=== PATIENT | female | born 1965 | race Caucasian/White ===

== ENCOUNTER 2016-12-23 00:31 | Inpatient (IN) ==
[2016-12-23] MEDS ORDERED: ROMAZICON ONE (00:41)
[2016-12-23] MEDS ORDERED: NARCAN ONE (00:41)
[2016-12-23] MEDS ORDERED: NS 1,000 ML ONE (00:42)
[2016-12-23] MEDS ORDERED: NS 1,000 ML IV ONE (01:08)
[2016-12-23] MEDS ORDERED: ROMAZICON IV ONE (01:08)
[2016-12-23 01:29] LABS: MANUAL DIFF NEEDED? NO
[2016-12-23 01:32] LABS: ALLEN TEST YES; BE -1.7 mmoll (-3.0-3.0); BLOOD TYPE ARTERIAL; DRAW SITE R RADIAL; O2(CT) 14.3 mL/dL (15.0-23.0); PO2(98.6) 97 mmHg (60-100); SAMPLE BLOOD; SAO2 93.5 % (95.0-100.0); THB 10.8 g/dL (11.5-17.4); pH(98.6) 7.22 (7.35-7.45)
[2016-12-23 01:33] LABS: MODALITY CANNULA
[2016-12-23 01:34] LABS: BASO% 0.5 % (0.0-0.8); EOS% 3.5 % (0.0-10.0); HEMATOCRIT 34.1 % (37.0-47.0); HEMOGLOBIN 10.8 g/dL (12.0-16.0); LYMPH# 2.33 X1000 (1.2-3.4); LYMPH% 41.2 % (20.5-51.1); MCH 28.9 PG (27-31); MCHC 31.7 g/dL (33-37); MCV 91.2 FL (81-99); MONO# 0.49 X1000 (0.11-0.59); MONO% 8.7 % (1.7-9.3); NEUT% 46.1 % (42.2-75.2); PLT 289 X1000 (130-400); RBC 3.74 XMIL (4.2-5.4)
[2016-12-23 01:34] LABS: PCO2(98.6) 66 mmHg (35-45)
[2016-12-23 01:43] LABS: ACETAMINOPHEN < 1.2 ug/mL (10-30); AGAP 7; ALBUMIN 3.6 g/dL (3.5-5.0); ALKALINE PHOSPHATASE 67 U/L (32-104); BUN 38 mg/dL (8-22); CALCIUM 8.8 mg/dL (8.8-10.2); CHLORIDE 104 mmol/L (98-107); COSMO 284; GOT 16 U/L (10-30); GPT 11 U/L (10-36); POTASSIUM 4.8 mmol/L (3.5-5.1); SODIUM 138 mmol/L (136-145); TCO2 27 mmol/L (25-35); TOTAL PROTEIN 6.6 g/dL (6.3-8.3); UR AMPHETAMINES QUAL PRESUMPTIVE POSITIVE (NONE DETECT); UR BARBITUATES QUAL NONE DETECTED (NONE DETECT); UR BENZODIAZEPIN QUAL PRESUMPTIVE POSITIVE (NONE DETECT); UR CANNABINOIDS QUAL NONE DETECTED (NONE DETECT); UR COCAINE QUAL NONE DETECTED (NONE DETECT); UR METHADONE QUAL NONE DETECTED (NONE DETECT); UR OPIATES QUAL PRESUMPTIVE POSITIVE (NONE DETECT); UR OXYCODONE QUAL NONE DETECTED (NONE DETECT); UR PCP QUAL NONE DETECTED (NONE DETECT)
[2016-12-23] MEDS ORDERED: NARCAN IV ONE (02:19)
[2016-12-23] MEDS ORDERED: ZOFRAN IV PRN (04:16)
[2016-12-23 04:24] LABS: URINE CULTURE NEEDED? NO; URINE MICRO REVIEW NEEDED? NO; URINE SOURCE CATH
[2016-12-23 04:34] LABS: BILIRUBIN URINE NEGATIVE (NEGATIVE); BLOOD URINE NEGATIVE (NEGATIVE); COLOR YELLOW; GLUCOSE URINE NEGATIVE (NEGATIVE); LEUKOCYTES URINE NEGATIVE (NEGATIVE); NITRITE URINE NEGATIVE (NEGATIVE); PROTEIN URINE NEGATIVE (NEGATIVE); SP GRAVITY URINE 1.015; TURBIDITY URINE CLEAR (CLEAR); UROBILINOGEN URINE NORMAL (NORMAL)
[2016-12-23 04:35] LABS: UR EPITHELIAL CELLS <10 /HPF (<10); URINE BACTERIA NEGATIVE /HPF; URINE RBC <10 /HPF (<10); URINE WBC <10 /HPF (<10)
[2016-12-23 05:17] LABS: INR 0.98; PROTIME 10.3 Seconds (9.2-11.7); PTT 22.8 Seconds (22.0-36.0)
--- NOTE | 2016-12-23 05:22 | EKG Report ---
Test Performed on : 12/23/2016 00:35:12 AM Test Reason : od Blood Pressure : / mmHG Vent. Rate : 064 BPM Atrial Rate : 064 BPM P-R Int : 160 ms QRS Dur : 086 ms QT Int : 390 ms P-R-T Axes : 036 046 044 degrees QTc Int : 402 ms Normal sinus rhythm. Increased R/S ratio in V1, consider early transition or posterior infarct Abnormal ECG No previous ECGs available Unconfirmed Result
[2016-12-23] MEDS ORDERED: NS 500 ML IV ONE (06:02)
[2016-12-23] MEDS: NS 1,000 ML IV SCH ×2 (06:23→14:42)
--- NOTE | 2016-12-23 07:20 | Diag Imaging Result Doc PS360 ---
CHEST-PORTABLE - 12/23/2016 INDICATION: Overdose, AMS TECHNIQUE: COMPARISON: None FINDINGS: Lung volumes are low. There are large infiltrates at the left apex and lower lobe. There is smaller infiltrate at the right lower lobe. There is cardiomegaly and pulmonary vascular congestion. IMPRESSION: See findings. Electronically signed by Mack Larose 12/23/2016 7:18 AM
[2016-12-23 08:18] LABS: POTASSIUM 5.4 mmol/L (3.5-5.1)
[2016-12-23 08:40] LABS: ALLEN TEST YES; BE -0.9 mmoll (-3.0-3.0); BLOOD TYPE ARTERIAL; DRAW SITE R BRACHIAL; O2(CT) 14.2 mL/dL (15.0-23.0); PO2(98.6) 110 mmHg (60-100); SAMPLE BLOOD; THB 10.2 g/dL (11.5-17.4); pH(98.6) 7.27 (7.35-7.45)
[2016-12-23 08:40] LABS: ACETAMINOPHEN < 1.2 ug/mL (10-30)
[2016-12-23 08:41] LABS: MODALITY BI PAP
[2016-12-23 08:42] LABS: PCO2(98.6) 58 mmHg (35-45)
[2016-12-23] MEDS: D5 NS 1,000 ML IV SCH (16:55)
[2016-12-24] MEDS: D5 NS 1,000 ML IV SCH ×3 (00:50→18:06)
[2016-12-24 04:58] LABS: ALLEN TEST YES; BE -0.9 mmoll (-3.0-3.0); BLOOD TYPE ARTERIAL; DRAW SITE R RADIAL; O2(CT) 21.1 mL/dL (15.0-23.0); PO2(98.6) 109 mmHg (60-100); SAMPLE BLOOD; SAO2 93.9 % (95.0-100.0); THB 15.9 g/dL (11.5-17.4); pH(98.6) 7.28 (7.35-7.45)
[2016-12-24 04:59] LABS: MODALITY BI PAP; PCO2(98.6) 58 mmHg (35-45)
[2016-12-24 05:05] LABS: HEMATOCRIT 31.6 % (37.0-47.0); MCH 29.5 PG (27-31); MCHC 31.6 g/dL (33-37); MCV 93.2 FL (81-99); MPV 9.8 FL (7.4-10.4); RBC 3.39 XMIL (4.2-5.4)
[2016-12-24 05:20] LABS: AGAP 8; ALBUMIN 3.3 g/dL (3.5-5.0); ALKALINE PHOSPHATASE 56 U/L (32-104); BUN 16 mg/dL (8-22); CALCIUM 8.8 mg/dL (8.8-10.2); CHLORIDE 111 mmol/L (98-107); COSMO 291; GOT 11 U/L (10-30); GPT 9 U/L (10-36); POTASSIUM 4.4 mmol/L (3.5-5.1); SODIUM 145 mmol/L (136-145); TCO2 26 mmol/L (25-35); TOTAL BILIRUBIN 0.27 mg/dL (0.20-1.00); TOTAL PROTEIN 5.9 g/dL (6.3-8.3)
[2016-12-25] MEDS: D5 NS 1,000 ML IV SCH ×3 (02:38→18:12)
[2016-12-26] MEDS ORDERED: MOTRIN PO ONE (01:23)
[2016-12-26] MEDS: D5 NS 1,000 ML IV SCH ×3 (02:07→20:20)
[2016-12-26] MEDS ORDERED: MOTRIN PO PRN (10:22)
[2016-12-26] MEDS: MOTRIN PO PRN ×2 (11:00→20:35)
[2016-12-27] MEDS: MOTRIN PO PRN ×2 (00:30→06:20)
[2016-12-27] MEDS: D5 NS 1,000 ML IV SCH (07:53)
[2016-12-27 07:56] VITALS: BP 154/81
== END 2016-12-27 12:21 | disposition home or self-care (01) ==
LOC: ED 00:31 → EDIPHOLD 04:53 → SUATTDRO 04:53 → ICU 13:22 → 3N 12-26 14:06
PROVIDERS: ATTEND Emergency Medicine

== ENCOUNTER 2018-03-22 11:16 | Inpatient (IN) ==
[2018-03-22] MEDS ORDERED: NS 1,000 ML IV ONE ×2 (11:32→12:07)
[2018-03-22] MEDS ORDERED: ZOSYN 4.5 GM in NS 100 ML IV ONE (11:32)
[2018-03-22] MEDS ORDERED: VANCOMYCIN 1 GM/NS 1 GM/250 ML IVPB IV ONE (11:32)
[2018-03-22] MEDS: LEVOPHED 8 MG in D5 1/2 NS 250 ML IV SCH ×3 (11:35→22:28)
[2018-03-22] MEDS ORDERED: LR 1,000 ML IV ONE (11:51)
[2018-03-22] MEDS ORDERED: NS 1,000 ML ONE ×2 (12:04→21:52)
[2018-03-22 12:15] LABS: ALLEN TEST YES; BE -13.8 mmoll (-3.0-3.0); BLOOD TYPE ARTERIAL; O2(CT) 14.8 mL/dL (15.0-23.0); PCO2(98.6) 35 mmHg (35-45); PO2(98.6) 62 mmHg (60-100); SAMPLE BLOOD; SAO2 89.7 % (95.0-100.0); THB 11.9 g/dL (11.5-17.4)
[2018-03-22 12:20] LABS: pH(98.6) 7.19 (7.35-7.45)
[2018-03-22 12:21] LABS: MODALITY NRB; O2HB 88.3 % (95.0-99.0)
--- NOTE | 2018-03-22 14:11 | Diag Imaging Result Doc PS360 ---
EXAM: CHEST-1 VIEW HISTORY: sepsis TECHNIQUE: Chest single view COMPARISON: 09/20/2017 FINDINGS: Poor inspiratory effort. No cardiomegaly. There is a small left pleural effusion. There are increased perihilar markings. IMPRESSION: Bilateral perihilar infiltrates as well as atelectasis in the left base. Short-term follow-up or CT is suggested following treatment to ensure these areas clear. Electronically signed by Segundo Woody 03/22/2018 2:08 PM
--- NOTE | 2018-03-22 14:46 | Diag Imaging Result Doc PS360 ---
HIP 1 VIEW LEFT - 03/22/2018 INDICATION: confirm central line (Left femoral) TECHNIQUE: COMPARISON: None FINDINGS: There is a left femoral central line in good position with the catheter tip at the level of the acetabular roof. IMPRESSION: Left femoral central line in good position. Electronically signed by Mack Larose 03/22/2018 2:44 PM
[2018-03-22] MEDS ORDERED: QUELICIN IV ONE (14:48)
[2018-03-22] MEDS ORDERED: AMIDATE IV ONE (14:48)
[2018-03-22 14:55] LABS: BASO# 0.01 X1000 (0.0-0.2); BASO% 0.1 % (0.0-0.8); EOS# 0.01 X1000 (0.0-0.7); EOS% 0.1 % (0.0-10.0); HEMATOCRIT 36.6 % (37.0-47.0); HEMOGLOBIN 12.5 g/dL (12.0-16.0); IMM GRAN# 0.04 X1000 (0.0-0.04); IMM GRAN% 0.4 % (0.0-0.5); LYMPH% 15.4 % (20.5-51.1); MCH 30.7 PG (27-31); MCHC 34.2 g/dL (33-37); MCV 89.9 FL (81-99); MONO# 0.56 X1000 (0.11-0.59); MONO% 5.7 % (1.7-9.3); MPV 9.5 FL (7.4-10.4); NEUT# 7.65 X1000 (1.4-6.5); NEUT% 78.3 % (42.2-75.2); PLT 105 X1000 (130-400); RBC 4.07 XMIL (4.2-5.4); RDW 19.6 % (11.5-14.5); WBC 9.77 X1000 (4.8-10.8)
[2018-03-22 14:56] LABS: BILIRUBIN URINE NEGATIVE (NEGATIVE); BLOOD URINE SMALL (NEGATIVE); COLOR YELLOW; GLUCOSE URINE NEGATIVE (NEGATIVE); KETONE URINE NEGATIVE (NEGATIVE); LEUKOCYTES URINE MODERATE (NEGATIVE); NITRITE URINE NEGATIVE (NEGATIVE); PH URINE 5.5; PROTEIN URINE 30 mg/dL (NEGATIVE); SP GRAVITY URINE 1.015; TURBIDITY URINE HAZY (CLEAR); URINE SOURCE CATH; UROBILINOGEN URINE NORMAL (NORMAL)
[2018-03-22 15:03] LABS: UR EPITHELIAL CELLS >10 /HPF (<10); URINE BACTERIA 4+ /HPF; URINE RBC <10 /HPF (<10); URINE WBC <10 /HPF (<10)
[2018-03-22 15:03] LABS: INR 1.61; PROTIME 20.4 Seconds (11.0-16.0)
[2018-03-22 15:11] LABS: URINE CASTS NONE SEEN; URINE SMALL ROUND CELLS NONE SEEN
[2018-03-22 15:21] LABS: ALB/GLOB RATIO 0.7; CALCIUM 7.6 mg/dL (8.8-10.2); CREATININE 2.9 mg/dL (0.5-0.9); POTASSIUM 5.4 mmol/L (3.5-5.1); TOTAL BILIRUBIN 1.54 mg/dL (0.20-1.00)
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
--- NOTE | 2018-03-22 16:02 | SEPSIS: TISSUE PERFUSION ASSMT ---
Sepsis: Tissue Perfusion Assvt - Physical Exam Assessment Date: 03/22/18 Time Assessment Initialized: 11:35 Vital Signs: Last Vital Signs Temp 96.9 F L 03/22/18 11:30 Pulse 118 H 03/22/18 13:18 Resp 20 03/22/18 13:18 BP 98/59 03/22/18 13:18 Pulse Ox 99 03/22/18 13:18 Height 5 ft 8 in Weight 171 lb Lung Sounds:: lungs clear, other (Tachypneic) Heart Sounds:: Other (Tachycardic) Peripheral Pulse Evaluation:: radial (R): 1+, radial (L): 1+, dorsalis-pedis (R) : 1+, dorsalis-pedis (L): 1+, posterior tibialis (R): 1+, posterior tibialis (L) : 1+ Skin Exam:: pale, cyanosis - Impression Impression:: Tissue Perfusion Inadequate - Plan Plan:: See Orders Comment: 03/24/18 15:47 Patient in septic shock and MODS
[2018-03-22] MEDS ORDERED: ZOFRAN IV PRN (16:10)
[2018-03-22] MEDS ORDERED: MISC. PHARMACY COMMUNICATION SCH (16:10)
[2018-03-22] MEDS ORDERED: DUONEB (A & A) INH PRN (16:10)
[2018-03-22] MEDS ORDERED: TYLENOL PO PRN (16:10)
[2018-03-22] MEDS ORDERED: MERREM 500 MG in NS 50 ML IV ONE (16:42)
[2018-03-22] MEDS: NEO-SYNEPHRINE 50 MG in NS 250 ML IV SCH ×3 (16:43→23:43)
[2018-03-22] MEDS ORDERED: VANCOMYCIN 500 MG/NS 500 MG/100 ML IVPB IV ONE (16:45)
[2018-03-22 17:23] LABS: LYMPHS 17 % (21-51); MONO 3 % (1-9); SEGS 80 % (42-75)
--- NOTE | 2018-03-22 17:40 | Diag Imaging Result Doc PS360 ---
EXAM: CT THORAX/ABD/PELVIS W/O CON HISTORY: pna, wound infection, recent sx TECHNIQUE: 1. CT chest without contrast 2. CT abdomen and pelvis without contrast COMPARISON: 09/20/2017 FINDINGS: Chest: Trace pleural fluid bilaterally. There are dense infiltrates in the left lower lobe with smaller infiltrates in the left upper lobe and right upper lobe. No cardiomegaly. No thoracic aortic aneurysm. Small mediastinal nodes. There is a 10 mm nodule posteriorly in the right lower lobe. It is difficult to tell if this was present previously due to the prior infiltrates. There is pulmonary edema. Abdomen and pelvis: The gallbladder has been removed. There is marked fatty infiltration of the liver. There has been a gastric bypass procedure. Normal spleen. There is fatty replacement of the pancreas. Normal adrenal glands. There is scarring to the right kidney. No hydronephrosis. No aortic aneurysm. There is a left-sided anterior abdominal catheter. The bowel loops are not dilated. There is a midline abdominal mesh. The uterus is small. There is a left femoral line. Air is present in the right inguinal region likely from a prior catheter on the right. IMPRESSION: Chest: 1. Bilateral pneumonia 2. Pulmonary edema 3. Right lower lobe nodule Abdomen and pelvis: 1. Fatty liver 2. Cholecystectomy 3. Gastric bypass with an anterior abdominal catheter and mesh 4. Scarring to the right kidney This exam was performed using automated exposure control, adjustment of mA or kV according to patient size, and/or use of iterative reconstruction technique. Electronically signed by Segundo Woody 03/22/2018 5:38 PM
[2018-03-22] MEDS: NS 1,000 ML IV SCH (17:56)
[2018-03-22] MEDS ORDERED: ZOSYN 2.25 GM in NS 50 ML IV SCH (18:00)
[2018-03-22] MEDS ORDERED: ZOSYN 3.375 GM in NS 50 ML IV SCH (18:00)
[2018-03-22] MEDS: DUONEB (A & A) INH SCH ×2 (19:25→23:25)
[2018-03-22 21:40] LABS: ALLEN TEST YES; BE -18.8 mmoll (-3.0-3.0); BLOOD TYPE ARTERIAL; HCO3-(ACT) 10.2 mmoll (20.0-26.0); O2HB 95.3 % (95.0-99.0); PCO2(98.6) 33 mmHg (35-45); PO2(98.6) 94 mmHg (60-100); SAMPLE BLOOD; SAO2 96.8 % (95.0-100.0); THB 13.4 g/dL (11.5-17.4)
[2018-03-22 21:41] LABS: MODALITY NRB; pH(98.6) 7.09 (7.35-7.45)
[2018-03-22] MEDS ORDERED: SODIUM BICARBONATE 8.4% IV PUSH ONE (21:55)
[2018-03-22] MEDS ORDERED: NS 1,000 ML IV SCH (22:00)
[2018-03-22] MEDS: SODIUM BICARBONATE 8.4% 100 MEQ in D5W 1,000 ML IV SCH (22:28)
--- NOTE | 2018-03-22 22:50 | HISTORY AND PHYSICAL ---
PRIMARY CARE PHYSICIAN PROVIDER: Dr. Curt Melissa. CHIEF COMPLAINT: Per family, infected abdominal wound. HISTORY OF PRESENT ILLNESS: Ms. Gee is a 52-year-old female who carries a past medical history of hypothyroidism, TIA, hypertension, hypoglycemia, previous gastric bypass, previous bowel obstructions as well as a repair at [facility] for a large diaphragmatic hernia. Per family's report, she had the surgery in May. I believe she was released and went back in September to [facility]. She spent the better part of her admission in the ICU. Per family, she was on life support twice. She was finally able to be discharged on December 22 after 3- month stay. Per family, she had been bed-bound throughout her admission and has been bed-bound since she got home. She does have home health who comes out and will give her baths. The patient or her 15-year-old daughter does her dressing changes. Per mother in the room, she stated 2 days ago she noticed that out of her open wound she had some green drainage with a foul smell. Mother went by the house yesterday. She was noted to be quite lethargic. She was trying to give her water through a tube. She stated the patient was swallowing it, but she was still pretty lethargic. She went to go check on her today and found she was more lethargic, and she was brought in by EMS. She was hypotensive with blood pressure 60s over 50s. She was tachycardic. EMS had started an I and O, and she was given a saline bolus. She was found to be in septic shock with an acute kidney injury with a creatinine of 2.9, transaminase, hyponatremic, hyperkalemic, elevated anion gap acidosis, bilateral pneumonia, urinary tract infection, a foul odor coming from her open abdominal wound that is dressed and brown, as well as in hypoxic respiratory failure. Dr. Akosua Jordan did speak with [facility]. They felt the patient was too unstable as she was requiring 2 pressors with Levophed and Ladarius-Synephrine and on a non-rebreather. We are waiting to get a CT of the chest, abdomen, and pelvis until the patient's blood pressure normalizes. She was initiated on treatment for sepsis with fluid boluses and IV broad-spectrum antibiotics with vancomycin and Zosyn. We will swap the Zosyn over for Merrem, recheck an ABG, and continue to follow her laboratory data. The patient is still remains lethargic. She will open her eyes but just moans. Too weak to follow any commands. REVIEW OF SYSTEMS: Fourteen-point review of systems was limited secondary to the patient's current condition and mentation. PAST MEDICAL HISTORY: Hypothyroidism, TIA, hypertension, hypoglycemia, gastric bypass surgery, morbid obesity, large diaphragmatic hernia status post open repair, as well as feeding tube in place that is not being used. PAST SURGICAL HISTORY: Left lobectomy, open repair of a large diaphragmatic hernia at [facility]. Per family, the surgery did not go well and it had to be left open. She did get an MRSA infection from this. Gastric bypass. SOCIAL HISTORY: The patient lives at home with her 15-year-old daughter. She only has home health. She has been bed-bound since September 2017. FAMILY HISTORY: Positive for coronary disease in father. ALLERGIES: Guaifenesin and Levaquin. MEDICATIONS: Home medications have not been reconciled. PHYSICAL EXAMINATION: GENERAL: Ms. Gee is an ill-appearing, 52-year-old, obese female who is lying in Trendelenburg in the stretcher. She is somewhat lethargic. She will open her eyes to verbal and physical stimuli, but then she goes right back to sleep. HEENT: Atraumatic, normocephalic. PERRL. NECK: Supple. Trachea midline. The patient does have an old healing trach wound. Dentition appears poor. CARDIOVASCULAR: S1, S2 appreciated. No murmurs, gallops, or rubs noted. PULMONARY: Bilaterally coarse throughout all lung mai. ABDOMEN: Completely covered with ABD pads. Some are soaked through with brown drainage. Per family, it is healing from the inside out. It is an open wound. She does have a PEG tube in place. Per the family, it has not been used for a long time since she was in the hospital and was only for medications. Bowel sounds were hypoactive. Again, it was hard to assess bowel sounds secondary to so many ABD pads being taped down. EXTREMITIES: She does have some cyanosis to upper and lower extremities secondary to clamping down from being on pressors. Pedal pulses were faint. NEUROLOGICAL: Again, the patient is lethargic. She is responsive to voice as well as physical palpation. She did not answer any questions. She did look in my direction when she opened her eyes. No focal deficits noted. VITAL SIGNS: Temperature is 96.9 degrees, heart rate 119, respirations 20, blood pressure 98/59, O2 is 99% on a non-rebreather. DIAGNOSTIC DATA: Chest x-ray: Bilateral perihilar infiltrates as well as atelectasis in the left base. Recommend short-term follow-up CT. Hip x-ray showed left femoral central line in good position. LABORATORY DATA: White count 9, hemoglobin 12, hematocrit 36, platelet count 105,000. PTT 20.4, INR 1.61, PTT is 53.0. ABG: pH 7.19, pCO2 of 35, pO2 of 62, bicarb 14, base excess -13.8. Oxyhemoglobin was 88.3. O2 saturation was 89 on 100% non-rebreather. Sodium 126, potassium 5.4, BUN 47, creatinine 2.9, blood glucose 66. Total bilirubin was 1.54, AST 109, ALT 40, alkaline phosphatase 240. First troponin was 0.047, second troponin 0.038. Albumin 2. Plasma lactate was initially 6.6, repeat is 6.4. She does have moderate leukocytes and 4+ bacteria in her urine. ASSESSMENT AND PLAN: 1. Septic shock. secondary to infected abdominal wound, Bilateral pneumonia and UTI. We will continue with aggressive hydration, broad-spectrum antibiotics. Continue with Levophed and Ladarius-Synephrine for blood pressure support. Move her to the ICU. 2. Acute kidney injury. Continue with aggressive hydration. Treatment per sepsis protocol. 3. Transaminitis. We will obtain a CT of the chest, abdomen, and pelvis when the patient has stabilized. 4. Hyponatremia. We will recheck at 1700 hours. 5. Hypokalemia. We will recheck again at 1700 hours. 6. Elevated anion gap acidosis. 7. Bilateral pneumonia. We will continue with broad-spectrum antibiotics, aggressive pulmonary toilet. 8. Acute hypoxemic respiratory failure. The patient is on 100% non-rebreather. We are attempting to recheck an ABG. Will consult Pulmonology. 9. Urinary tract infection. We will continue to trend urine culture. 10. Abdominal wound infection that is draining brown liquid with a very potent, foul smell. The ED physician has spoken with Dr. Ashley. He is aware of the patient. We will await his recommendation. Consult Wound Care. 11. Per family, she has 3 open wounds to her bottom as well as discoloration and /or "- appearing skin" to the sacrum. We will continue with wound care. We could not assess her wounds at this time secondary to her being hypotensive. 12. Hypotension secondary to septic shock. Continue vasopressors, IV fluids. on Levophed and LADARIUS drip. 13. Thrombocytopenia. Did not note any active bleeding will check studies for possible DIC. 14. Hypothyroidism. Continue home Synthroid, possibly convert to IV. 15. Hypertension. In light of the patient being hypotensive, we will hold any blood pressure medications. ED physician did speak with [facility]. They felt that the patient was too unstable to transfer. That is why she is being admitted at [facility] to the ICU. Further recommendations will follow physician evaluation, laboratory, and diagnostic data as well as consultations from General Surgery, Infectious Disease, Pulmonology, and Wound Care consult. CRITICAL CARE TIME SPENT: 60 minutes. Dictated by NANDO Flores for Augusto Clay MD Addendum: Patient seen and examined by myself. Agree with NANDO note. It reflects my assessment and plan. Patient is being admitted to hospital for septic shock secondary to intraabdominal infection and pneumonia. She has been at [facility] for three months with a complication of bariatric surgery and surprisingly she was sent home. Now she is on shock, she is septic. We recommended to send her back to [facility] but they refused because she was unstable. Will order CT abdomen, pelvis and thorax and will send her to ICU. cc: MD Curt Carrillo MD MTDD
[2018-03-23] MEDS ORDERED: FLORINEF PO ONE (00:04)
[2018-03-23 00:08] LABS: ALB/GLOB RATIO 0.5; CALCIUM 7.5 mg/dL (8.8-10.2); CREATININE 2.6 mg/dL (0.5-0.9); TOTAL BILIRUBIN 1.67 mg/dL (0.20-1.00); TOTAL PROTEIN 5.7 g/dL (6.3-8.3)
[2018-03-23 00:09] LABS: POTASSIUM 6.2 mmol/L (3.5-5.1)
[2018-03-23] MEDS ORDERED: PITRESSIN 40 UNIT in NS 100 ML IV SCH (00:15)
[2018-03-23] MEDS ORDERED: CALCIUM GLUCONATE 1 GM in NS 50 ML IV ONE (00:19)
[2018-03-23] MEDS ORDERED: D50W SYRINGE IV ONE (00:19)
[2018-03-23] MEDS ORDERED: HUMULIN R IV ONE (00:20)
[2018-03-23] MEDS ORDERED: SODIUM BICARBONATE 8.4% INJ ONE (00:22)
[2018-03-23] MEDS: ALBUMIN 25% IV SCH ×2 (00:27→08:08)
[2018-03-23] MEDS: MERREM 500 MG in NS 50 ML IV SCH ×2 (00:28→08:08)
[2018-03-23] MEDS ORDERED: NS 50 ML ONE (00:28)
[2018-03-23] MEDS: SOLU-CORTEF IV SCH ×2 (00:28→08:09)
[2018-03-23] MEDS: NS IV SCH ×3 (01:44→12:00)
[2018-03-23] MEDS: VITAMIN C IV SCH ×3 (01:44→12:00)
[2018-03-23] MEDS: NEO-SYNEPHRINE 100 MG in NS 500 ML IV SCH ×3 (01:47→11:45)
[2018-03-23] MEDS: NS 1,000 ML IV SCH ×2 (01:49→08:08)
[2018-03-23] MEDS: LEVOPHED 8 MG in D5 1/2 NS 250 ML IV SCH ×3 (02:56→11:47)
[2018-03-23] MEDS: DUONEB (A & A) INH SCH ×4 (03:25→15:46)
--- NOTE | 2018-03-23 03:53 | GENERAL SURGERY PROGRESS NOTE ---
DATE: 03/22/2018 REASON FOR CONSULTATION: Abdominal wound with stool leakage and sepsis. HISTORY OF PRESENT ILLNESS: This is a 52-year-old female with a complicated surgical history including previous gastric bypass, multiple diaphragmatic hernia repairs and ventral hernia repairs, including cholecystectomy and appendectomy as well. She was found by her family this morning unresponsive. She apparently has had a prolonged difficult medical course over the last 6 months to a year. She had an operation at [facility] last summer for what I think was another attempted repair of her diaphragmatic hernia. She apparently has had major complications requiring other operations and spent the better part of 3-4 months last summer and fall at [facility]. She was discharged I believe in January, and has had 1 follow up visit there. She has a feeding tube placed into a wound on her abdomen that is not being used for tube feeds, and she has an open abdominal wound that leaks feculent material. The patient does not have any specific complaints herself today, but she is altered and poorly responsive. PAST MEDICAL HISTORY: Hypertension, hypothyroidism, morbid obesity. PAST SURGICAL HISTORY: As described above in the HPI and some surgeries have been at [facility] that I am unaware the nature of. ALLERGIES: Levaquin, guaifenesin. HOME MEDICATIONS: Unknown at this time. SOCIAL HISTORY: No history of smoking, alcohol, or illicit drug use. FAMILY HISTORY: Positive for coronary artery disease. REVIEW OF SYSTEMS: Is unobtainable. PHYSICAL EXAMINATION: Vital Signs: I saw her around 3:00 p.m. this afternoon, her heart rate was 127, blood pressure 80s systolic, 30s diastolic, respiratory rate 14-16, O2 sat 99%-100%. General: She is awake but not answering questions or following commands, lying fairly still. HEENT: Normocephalic and atraumatic. Pupils are equal and round. Sclerae are anicteric. Mucous membranes are dry. Neck: Supple. No JVD. Cardiovascular: Tachycardic and regular. Respiratory: Coarse bilateral breath sounds. No increased work of breathing. Gastrointestinal: Soft, not particularly tender. There is a large open wound in the mid abdomen with some feculent drainage on the gauze. There is a gastrostomy tube going through this wound into an unknown location I would assume a loop of bowel. There is significant erythema of the skin and skin breakdown. LABORATORY DATA: White blood cell count 9.7, hemoglobin 12.5, hematocrit 36.6, INR 1.6, PTT 53. PH 7.19, pCO2 35, PaO2 62, bicarbonate 14, base deficit -13, lactate 6.6. Sodium 126, potassium 5.4, chloride 91, CO2 of 14, BUN 47, creatinine 2.9, total bilirubin 1.5, AST 109, ALT 40, alkaline phosphatase 240, albumin 2.0. ASSESSMENT AND PLAN: A 52-year-old female in what is potentially septic shock or at least hypovolemic shock. 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 She is being fluid resuscitated in the Emergency Room now and will be receiving broad-spectrum antibiotics. She will need to be stabilized and then transferred back to the Surgical Team at [facility] for further care of her multiple complex issues. cc: Ivan Ashley MD
[2018-03-23 05:37] LABS: ALLEN TEST YES; BE -11.4 mmoll (-3.0-3.0); BLOOD TYPE ARTERIAL; METHB 0.9 % (0.0-1.5); O2(CT) 13.8 mL/dL (15.0-23.0); O2HB 96.4 % (95.0-99.0); PCO2(98.6) 47 mmHg (35-45); PO2(98.6) 99 mmHg (60-100); SAMPLE BLOOD; THB 10.1 g/dL (11.5-17.4)
[2018-03-23 05:38] LABS: pH(98.6) 7.16 (7.35-7.45)
[2018-03-23 05:39] LABS: MODALITY NRB
--- NOTE | 2018-03-23 08:33 | EKG Report ---
Test Performed on : 03/22/2018 5:07:50 PM Test Reason : CHEST PAIN Blood Pressure : / mmHG Vent. Rate : 130 BPM Atrial Rate : 130 BPM P-R Int : 176 ms QRS Dur : 082 ms QT Int : 270 ms P-R-T Axes : 068 047 081 degrees QTc Int : 397 ms Sinus tachycardia. Low voltage QRS Septal infarct (cited on or before 20-SEP-2017) Possible Lateral infarct , age undetermined Possible Inferior infarct (cited on or before 20-SEP-2017) Abnormal ECG When compared with ECG of 22-MAR-2018 17:07, (Unconfirmed) No significant change was found Confirmed by Marci ANNE, Ender Lang ([id number]) on 03/24/2018 6:57:56 PM
[2018-03-23] MEDS ORDERED: ALBUTEROL NEB INH SCH (08:45)
[2018-03-23 09:10] LABS: INR 1.62; PROTIME 20.4 Seconds (11.0-16.0)
[2018-03-23] MEDS: HUMULIN R IV SCH ×2 (09:21→12:45)
[2018-03-23] MEDS: D50W SYRINGE IV SCH ×2 (09:21→12:45)
[2018-03-23 09:40] LABS: BASO# 0.05 X1000 (0.0-0.2); BASO% 0.2 % (0.0-0.8); EOS# 0.06 X1000 (0.0-0.7); EOS% 0.2 % (0.0-10.0); HEMATOCRIT 34.4 % (37.0-47.0); HEMOGLOBIN 11.3 g/dL (12.0-16.0); IMM GRAN# 0.17 X1000 (0.0-0.04); IMM GRAN% 0.5 % (0.0-0.5); LYMPH# 2.81 X1000 (1.2-3.4); MCH 30.7 PG (27-31); MCHC 32.8 g/dL (33-37); MCV 93.5 FL (81-99); MONO# 1.28 X1000 (0.11-0.59); MONO% 4.1 % (1.7-9.3); MPV 9.1 FL (7.4-10.4); NEUT# 26.74 X1000 (1.4-6.5); PLT 229 X1000 (130-400); RBC 3.68 XMIL (4.2-5.4); RDW 19.5 % (11.5-14.5); WBC 31.11 X1000 (4.8-10.8)
[2018-03-23 09:41] LABS: CALCIUM 7.1 mg/dL (8.8-10.2); CREATININE 2.3 mg/dL (0.5-0.9); POTASSIUM 4.8 mmol/L (3.5-5.1)
[2018-03-23] MEDS ORDERED: DILAUDID IV PRN (09:54)
[2018-03-23 10:17] LABS: ANISOCYTOSIS 1+; BANDS 22 % (0-1); HYPOCHROM 2+; LYMPHS 8 % (21-51); MONO 2 % (1-9); SEGS 62 % (42-75)
[2018-03-23] MEDS: ALBUTEROL 0.5% INH CONC FOR HYPERKALEMIA INH SCH ×2 (10:35→13:14)
--- NOTE | 2018-03-23 10:54 | PROGRESS NOTE ---
DATE: 03/23/2018 SUBJECTIVE: Patient is a little bit awake and answering nodding her head. She is not in pain or having any difficulty in breathing. OBJECTIVE: Vital Signs: Temperature 97.1 degrees, heart rate 127, respiratory rate 24, blood pressure 117/71, O2 saturation 100% on non-rebreather mask. General Examination : This is a chronically ill-looking, 52-year-old female, lying in bed, in no acute distress. HEENT: Normocephalic, atraumatic. Poor dentition noted. Neck: No JVD noted. No carotid bruit. The patient has an old healing trach wound noted. Cardiovascular: S1, S2 heard. Tachycardic but no murmurs, gallops, or rubs. Respiratory: Coarse breath sounds noted in both pulmonary mai, mostly noted in both bases. Patient is not using any accessory muscles or having work of breathing. Abdomen: Completely covered by an abdominal pad. Some of them are soaked with fecal material. There is a PEG tube in place. Bowel sounds hypoactive but present. Extremities: There is some cyanosis and clubbing noted. Peripheral pulses present but faint. Neurological: Patient is lethargic. Just answers basic questions, just nodding her head. LABORATORY DATA: White cell count 21.11, hemoglobin 11.3, hematocrit 34.4, platelets 229,000. INR 1.62. ABG shows pH 7.16, with pCO2 47, PO2 99, bicarbonate is 16. Lactate 5.8. Potassium 4.8, creatinine 2.3, calcium 7.8. TSH is 20.6. ASSESSMENT AND PLAN: 1. Septic shock secondary to intra-abdominal infection. The patient unfortunately continues to get worse. The patient has been on pressors since admission yesterday and now she is requiring 2, which are almost maxed out. At this point we will continue with same management. Currently, patient is receiving vancomycin on meropenem. The patient is on Levophed and Ladarius- Synephrine. We will continue to monitor closely. 2. 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 It continues to drain fecal material, very foul smelling. Even though initial surgical evaluation recommended stabilizing her and sending her to [facility] because that is where she had this primary surgery, gastric bypass , with all of these complications, I personally think that this patient is not going to be stabilized in the near future. She continues to get worse. Now she is requiring 2 vasopressors that already maxed out. Ideally this patient should have gone to [facility] from the ER but at this point, we will continue to monitor this patient closely in the intensive care unit. 3. Acute hypoxemic respiratory failure. Patient continues to require 100% non- rebreather mask. There is severe metabolic acidosis. She is at high risk of intubation. 4. Urinary tract infection. We will continue with antibiotics. 5. Shock liver. We will continue to monitor hepatic function daily. ALT and AST have been elevated because of low blood pressure. 6. Bilateral pneumonia. We will continue with broad-spectrum antibiotics. It is most likely from aspiration. 7. Disposition. We will continue to monitor this patient closely. Unfortunately she is declining. 8. Code status is DNR level 1. cc: Augusto Clay MD MTDD
[2018-03-23] MEDS ORDERED: VANCOMYCIN IV PER PHARMACY MISC SCH (11:00)
[2018-03-23] MEDS: SODIUM BICARBONATE 8.4% 100 MEQ in D5W 1,000 ML IV SCH (12:00)
--- NOTE | 2018-03-23 12:46 | NEPHROLOGY CONSULTATION ---
DATE: 03/23/2018 REASON FOR ADMISSION: Altered mental status with infected abdominal wound. REASON FOR CONSULTATION: Acute kidney injury. CONSULTING PHYSICIAN: Dr. Turcios. HISTORY OF PRESENT ILLNESS: Ms. Gee is a 52-year-old white female who has had an eventful past medical history. It is noted in the last year, the patient has had previous gastric bypass surgery with bowel obstructions with repair at [facility]. During that period of time , she had a diaphragmatic hernia this past May. Family states that she was hospitalized for approximately 3 months. During that period of time, she was on ventilatory support twice. They denied any dialysis during this period of time. Since her discharge, she has been bedbound. She has home health, who comes in to assist with her care. She does have a 15-year-old daughter, who helps with her dressing changes. Her mother is stated to have her Power of Mercantile Reporter. It is stated that her mother noted several days ago that she had an open wound with green drainage and foul smell to her lower abdominal area. She has a PEG tube in her left midquadrant for feeding. Yesterday, it was noted that her family thought that she was more lethargic, had more increased altered mental status, and was more swollen. She was brought by EMS to [facility]. She was found to be lethargic, hypotensive, tachycardic. She was given IV saline boluses, and started on norepinephrine for septic shock and acute kidney injury. Initially, her creatinine was found to be 2.9. She was hyponatremic with a gap acidosis. Bilateral pneumonia has been documented on chest x-ray. Urinary tract infection is noted with a Carter catheter in place. Abdominal wound is currently dressed, though she does have brown drainage. She is hypoxic. She is currently on 100% nonrebreather. She currently resides in the ICU. She is currently on Zosyn and Merrem. She has received 1 dose of vancomycin. Her family has made her a DO NOT RESUSCITATE level 1, though upon discussion, they state that they will be in possible agreement to dialysis if indicated in the next 24 to 48 hours. The patient remains nonverbal. She does not open her eyes to any verbal commands. Poor historian. Family is at the bedside. PAST MEDICAL HISTORY: Hypothyroidism, TIA, hypertension, hypoglycemic, gastric bypass surgery, morbid obesity, large diaphragmatic hernia with open repair and closure, feeding tube in place with PEG to the left mid quadrant. PAST SURGICAL HISTORY: She has had a left lobectomy, large diaphragmatic hernia repair at [facility] in May. She has history of MRSA infection, history of gastric bypass. SOCIAL HISTORY: The patient lives at home with her 15-year-old daughter, who assists in her primary care, mother and family who are attentive to her care. She has one brother remaining with her mother. She has stated to have been bedbound since 09/2017. No tobacco, alcohol, or illicit drug use. Home health assistance. FAMILY HISTORY: Positive for coronary artery disease with father. CURRENT ALLERGIES: Listed as guaifenesin and levofloxacin. HOME MEDICATIONS: 1. Xanax. 2. Ambien. 3. Estrace. 4. Neurontin. 5. Celexa. 6. Zanaflex. 7. Synthroid. 8. Oxybutynin chloride. 9. Lisinopril/hydrochlorothiazide. REVIEW OF SYSTEMS: As best obtained from the patient and per family at the bedside and chart. IMAGING AND LABORATORY DATA: Sodium 135, potassium 4.8, chloride 100, CO2 of 17 , BUN 36, creatinine 2.3, glucose 122. The patient has an anion gap of 18, calcium 7.1. Previous albumin of 2. She has received intravenous albumin. She has a BNP of 17,958. Vitamin B12 greater than 2000, folate 10.5. Hemoglobin 11.3, hematocrit 34.4, with a platelet count of 229,000, white count 31.11. The patient had ABGs drawn this a.m., pH 7.16, CO2 of 47, PO2 of 99, bicarb 16. Her plasma lactate is 5.8 on 100% nonrebreather. Her chest x-ray this a.m. has not been interpreted, with possible pneumonia on the left. PHYSICAL EXAMINATION: Vital Signs: Her most recent vital signs who her last temperature 97.1 degrees, blood pressure 115/71, heart rate 121, respirations are 20, she is on 100% nonrebreather, last recorded saturation 99%. She is currently receiving a breathing treatment at this time. Intake and output, she has had 5947 in, for septic shock fluid resuscitation of 3 L. Remains on Ladarius-Synephrine. General: This is a 52-year-old, morbidly obese, white female, resting quietly in bed. She is essentially unresponsive, not able to assist with exam. She is nonverbal. HEENT: Normocephalic, atraumatic. She does have SOTO. Mucous membranes are dry. She has an old, healed trach wound. Her dentition is poor. Unable to determine JVD. Cardiovascular: S1, S2 noted. She is tachycardic on the monitor. S4 is present. Lungs: Diminished breath sounds. Poor inspiratory effort. She remains on O2 support per nonrebreather. Abdomen: Large, obese. PEG tube to the left midquadrant. This is darkened in color. Hard to assess bowel sounds. Genitourinary: Carter catheter is in place with minimal urine out. Extremities : Dusky toes. Ulcers on her heels, not inspected with dressings intact. Pulses are faint and diminished bilaterally. Trace to 1+ pretibial edema. Neurologic: Patient responsive to voice only, though she does not follow commands or open her eyes. Unable to determine any focal deficits. ASSESSMENT AND PLAN: 1. Acute kidney injury. This appears to be multifactorial ATN. The patient is in septic shock. She is hypotensive. She is on pressor support. She is volume depleted. She has decreased urinary output. We have discussed possible bridge for dialysis with the brother and nephew at the bedside. He states that his mother has Power of Mercantile Reporter, but at this point, he would be agreeable for dialysis intervention if this would prove to help in her care. 2. Electrolytes and acid-base balance. She has hyperkalemia. We will plan for D50 insulin and albuterol to be given every 4 hours x3, with repeat labs this evening at 5 p.m. She is to have strict intake and output. 3. Acidosis. The patient has an anion gap acidosis, along with a metabolic and respiratory acidosis. More than likely, this is related to her elevated lactate and sepsis. We will continue to monitor and evaluate. 4. Sepsis with leukocytosis. The patient is currently on Merrem and Zosyn. She has been given a dose of vancomycin in the emergency room. Followed by the primary care team. I would to thank you for allowing us to follow with this patient. Dictated by NANDO Mejia for Karl Reza MD Face to face encounter, data reviewed, discussed with Win Cortes on 03/23/17. I agree with the above assessment and plan of care. cc: NANDO Mejia MD MTDD
--- NOTE | 2018-03-23 13:11 | CONSULTATION ---
DATE OF CONSULTATION: 03/23/2017 REQUESTING PROVIDER: NANDO Flores REASON FOR CONSULTATION: Hypoxic respiratory failure. HISTORY OF PRESENT ILLNESS: This is a 52-year-old female with a past medical history of hypothyroidism, hypertension, TIA, morbid obesity, bowel obstruction, large diaphragmatic hernia, and drug overdose. She was sent to the ER yesterday with altered mental status , hypotension and tachycardia. In the ER, CT thorax, abdomen and pelvis shows bilateral pneumonia , pulmonary edema, trace pleural fluid bilaterally, and right lower lobe nodule with fatty liver, cholecystectomy, gastric bypass with anterior abdominal catheter and mesh, and scarring to the right kidney. Lab revealed pH 7.19, lactate 6.60, sodium 126, potassium 5.4, chloride 91, carbon dioxide 14, BUN 47, creatinine 2.9, calcium 7.6, AST 109, ALT 40, alkaline phosphatase 240. She also was found to have a urinary tract infection and there was an open abdominal wound that was dressed and brown. She has been admitted to the ICU for further evaluation and management. At the time of my exam, the wound nurse is changing the patient's wound dressing on the abdomen and the buttock, but the patient is poorly responsive. She opens her eyes upon stimuli, but does not answer any questions. She is too weak to follow any commands. There is no family at the bedside. PAST MEDICAL HISTORY: 1. Hypothyroidism. 2. Hypertension. 3. TIA. 4. Morbid obesity with previous gastric bypass. 5. Bowel obstruction. 6. Large diaphragmatic hernia, status post multiple repairs at [facility]. 7. Drug overdose. PAST SURGICAL HISTORY: 1. Left lobectomy. 2. Open repairs of a large diaphragmatic hernia at [facility]. Per family, the surgery did not go well and it had to be left open. She did get a MRSA infection from this. 3. Gastric bypass. 4. Ventral hernia repair. 5. Cholecystectomy. 6. Appendectomy. 7. Thyroidectomy. 8. Bilateral tubal ligation. 9. Tonsillectomy. 10. section. 11. Hysterectomy. 12. CABG. SOCIAL HISTORY: Per H and P, the patient lives at home with her 15-year-old daughter. She only has home health. She has been bed-bound since September 2017. FAMILY HISTORY: Per H and P, positive for coronary disease. ALLERGIES: Guaifenesin and Levaquin. REVIEW OF SYSTEMS: Unable to be obtained. PHYSICAL EXAMINATION: Vital Signs: Blood pressure 119/81, pulse 120, respiratory rate 20, oxygen saturation 100% on non-rebreather with FiO2 100%. General: Morbidly obese, chronically ill- appearing, pale. She opens her eyes occasionally. HEENT: Atraumatic. Trachea midline. Her face looks pale with lip cyanosis. Respiratory: Diminished breathing sounds bilaterally, worse on the left side with rhonchi and crackles bilaterally. Breathing sounds severely coarse throughout all lung mai. Cardiovascular: Sinus tachycardia with regular rate and rhythm. Gastrointestinal: Her abdomen is covered with dry and clean abdominal pads at this time. She does have a PEG tube in place. Bowel sounds hypoactive in all 4 quadrants. Soft, nondistended and obese. Extremities: Extremity cyanosis. Pedal pulses faint. Extremities cool to touch with BLE and BUE pitting edema 2+. Neurologic: The patient is poorly responsive. She does open her eyes upon stimuli, but does not answer any questions. DIAGNOSTIC DATA: Chest x-ray reveals worsened atelectasis +/- pneumonia in the left upper and lower lobe. LABORATORY DATA: White blood cells 31.11, hemoglobin 11.3, hematocrit 34.4, platelet 229,000. Sodium 135, potassium 4.8, chloride 100, carbon dioxide 17, BUN 36, creatinine 2.3, glucose 122. ProBNP 17,958. ABG: pH 7.16, pCO2 47, PO2 99, HC03 16.0, base excess -11.4, oxyhemoglobin 96.4, and lactate 5.80. ASSESSMENT: This is a 52-year-old female with a medical history of hypothyroidism, hypertension, transient ischemic attack, morbid obesity with previous gastric bypass, bowel obstruction, large diaphragmatic hernia, status post multiple repairs at [facility], and drug overdose. She has been admitted to the intensive care unit with septic shock, acute kidney injury, transaminitis, hyponatremia, hypokalemia, bilateral pneumonia, acute hypoxemic respiratory failure, urinary tract infection, and abdominal wall infection. 1. Septic shock. 2. Acute hypoxemic respiratory failure. 3. Bilateral pneumonia. PLAN: 1. Daily ABG, chest x-ray, CBC, and CMP. 2. Continue supplemental oxygen. 3. Continue pressors, antibiotics, stress steroids, and bronchodilators as prescribed. 5. Continue GI and DVT prophylaxis. 6. The patient is DNR 1. Thank you for the courtesy of this consult. Dictated by NANDO Akins for Jarvis Jones MD cc: NANDO Akins MD [facility]
[2018-03-23] MEDS ORDERED: CUBICIN 600 MG in NS 100 ML IV SCH (13:30)
--- NOTE | 2018-03-23 13:35 | Diag Imaging Result Doc PS360 ---
EXAM: CHEST-PORTABLE 03/23/2018 HISTORY: assess pulmonary edema TECHNIQUE: AP portable at 0920 COMMENT: There is worsened alveolar opacification of the left lung with only a small portion of the apex still pneumatized. Some slight improvement in opacification of the right upper lobe is present. The right lower lobe is largely clear. IMPRESSION: Worsened atelectasis and/or pneumonia in the left upper and lower lobe. Electronically signed by Chase Alberts 03/23/2018 1:33 PM
[2018-03-23] MEDS ORDERED: TEFLARO 400 MG in NS 250 ML IV SCH (14:00)
--- NOTE | 2018-03-23 14:30 | INFECTIOUS DISEASE CONSULT REP ---
DATE: 03/23/2018 CONCLUSION: The patient has abdominal wall cellulitis and infected G-tube site. She also appears to have pneumonia. RECOMMENDATIONS: I agree with treating the patient with meropenem. I have substituted ceftaroline for vancomycin. DISCUSSION: The patient is unable provide a history and no family member was present. According to the computer, the patient was admitted with an infected abdominal wound. She has had a previous gastric bypass and previous bowel obstructions, as well as a repair at [facility] for a large diaphragmatic hernia. The patient has developed an abdominal wall infection and an associated G- tube site infection as well. The patient's CBC showed a white count increased today to 31,110, hemoglobin 11.3 and platelet count of 229,000. Creatinine is 2.3. GFR is 22. The AST is 305. Urinalysis shows bacteria, but no white cells. Abdominal wall Gram stain shows gram-positive cocci and gram-negative rods. Blood cultures are pending. Chest x-ray shows bi -ihilar infiltrates and CT scan of the abdomen and pelvis shows bibasilar pneumonia. PAST MEDICAL HISTORY: Positive for hypothyroidism, transient ischemic attack, hypertension, hypoglycemia, morbid obesity, for which the patient underwent gastric bypass surgery, large diaphragmatic hernia status post open repair and feeding tube is in place. PAST SURGICAL HISTORY: Left lobectomy, an open repair of a large diaphragmatic hernia, gastric bypass surgery. SOCIAL HISTORY: The patient lives at home with her daughter. The patient had has been bed-bound since September 2007. FAMILY HISTORY: Positive for coronary artery disease in the patient's father. DRUG ALLERGIES: Patient has drug allergies to Levaquin and guaifenesin. HOME MEDICATIONS: Include the following: Xanax, Celexa, Estrace, Neurontin, Synthroid, lisinopril/hydrochlorothiazide, oxybutynin, Zanaflex and Ambien. PHYSICAL EXAMINATION: Vital Signs: Temperature is 97.8, pulse 126, respirations 11, blood pressure 120/60. Generally: This is an ill-appearing middle-aged female. She is in no acute distress. Head, Eyes, Ears, Nose and Throat: No drainage was noted from the nose or ears. Neck: No meningismus. Lungs: There were bilateral rhonchi. Cardiovascular: Heart rate is regular. Abdomen: The patient's abdominal wall was erythematous. A PEG tube is in place and there is purulent drainage coming from around the tube as well as small amounts of feces. In the left groin area there is a triple-lumen catheter. Neurologic: The patient is obtunded has a depressed level of consciousness. She did not respond to verbal stimuli. There was no tremor. Thank you for the consult. cc: Shyam Grady MD MTDD
[2018-03-23 14:44] LABS: ALBUMIN 2.5 g/dL (3.5-5.0); CREATININE 2.1 mg/dL (0.5-0.9); PHOSPHORUS 5.5 mg/dL (2.7-4.5); POTASSIUM 4.2 mmol/L (3.5-5.1)
[2018-03-23 14:45] LABS: CALCIUM 6.7 mg/dL (8.8-10.2)
[2018-03-23] MEDS ORDERED: CALCIUM GLUCONATE 2 GM in NS 100 ML IV ONE (14:47)
--- NOTE | 2018-03-23 15:10 | GENERAL SURGERY PROGRESS NOTE ---
DATE: 03/23/2018 SUBJECTIVE: The patient remains somewhat poorly responsive. She now is on 2 pressors. OBJECTIVE: Pulse 120s to 130s. Systolic blood pressure 80s to 90s, O2 saturation 94% to 97% percent. General: She is ill-appearing and will respond somewhat to stimuli but not answering questions or following commands. CV: Tachycardic and regular. Gastrointestinal: Soft. The abdominal wound was examined. There is some open subcutaneous tissue with mild granulation around a G-tube. The drainage is not as dirty looking today. Bowel sounds are hypoactive. Abdomen is nondistended. Extremities: Cool to touch. Faint pedal pulses. LABORATORY: White cell count 31,000. Hemoglobin 11, hematocrit 34, platelet count 229,000. INR 1.6. pH 7.16, pCO2 of 47, PaO2 of 99, bicarb 16. Base deficit -11. Lactate 5.8. Sodium 135, potassium 4.8, chloride 100, CO2 of 17, BUN 36, creatinine 2.3. IMAGING: A chest x-ray today shows worsened atelectasis or pneumonia in the left upper and lower lobe. ASSESSMENT AND PLAN: A 52-year-old female with septic shock, left-sided pneumonia, nonhealing abdominal wound. I reviewed her records from [facility] at least up until November of last year. She underwent debridement of a large portion of infected and necrotic abdominal wall. 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 Her wound was left open and packed with gauze. So, I suspect she is having continued drainage from the gastric remnant around the G-tube site at times rather than stool from a colocutaneous fistula. I think the wound can be controlled with wet-to-dry Vashe moistened gauze. She needs support for her pneumonia and hemodynamic instability, which she is getting, and I recommend transfer back to [facility] for further definitive management of her wound and gastric cutaneous fistula when she is stable. cc: Ivan Ashley MD
[2018-03-23 18:52] VITALS: BP 83/61
--- NOTE | 2018-03-24 06:34 | DISCHARGE SUMMARY ---
ADMISSION DATE: 03/22/2018 DISCHARGE DATE: 03/23/2018 PRIMARY CARE PHYSICIAN: Dr. Curt Melissa. CONSULTATIONS: 1. Dr. Reza with Nephrology. 2. Dr. Shyam Grady with Infectious Disease. 3. Dr. Ivan Ashley with General Surgery. 4. Dr. Jones. PERTINENT PROCEDURES: 1. Initial chest x-ray revealed bilateral perihilar infiltrates as well as atelectasis in the left base. Recommended CT follow-up. 2. Hip x-ray showed left femoral central line in good position. 3. Chest, abdomen and pelvis CT showed bilateral pneumonia, pulmonary edema, right lower lobe nodule, fatty liver, cholecystectomy, gastric bypass with an anterior abdominal catheter and mesh, scarring to the right kidney. 4. Followup chest x-ray showed worsening atelectasis and pneumonia in left upper and lower lobe. DISCHARGE DIAGNOSES: 1. Septic shock secondary to left-sided pneumonia and nonhealing abdominal wound. The patient had previously had abdominal surgeries at [facility], and spent the better part of the year in and out of the hospital. Unfortunately, she has succumbed to her illness and on 04/02/2018 around 18:10. Prior to expiring, she was placed on comfort measures around 17:00 per family's request. She was on the sepsis protocol and being treated accordingly. She was not a candidate for General Surgery here. Our initial plan was to stabilize her, and transfer her to [facility]. Again, unfortunately, she . 2. Abdominal wall cellulitis and infected G-tube site. See #1. 3. Acute kidney injury followed by Dr. Reza. 4. Acute hypoxemic respiratory failure followed by Pulmonology. HOSPITAL COURSE: Briefly, Ms. Gee is an unfortunate 52-year-old female who carries a previous past medical history of hypothyroidism, TIA, hypertension, hyperglycemia, previous gastric bypass surgeries, and multiple diaphragmatic hernia repairs and ventral hernia repair including a cholecystectomy and appendectomy as well. The day prior to her admission she was somewhat lethargic per her mother's report. She was trying to give her a little bit of water. When she checked on her on the day of admission, she was even more lethargic and had reported for 2 days prior a green drainage coming from her open incision. She has had a prolonged difficult medical course over the last 6 months to a year. Her operation was done at [facility] last summer which was another attempted repair of her diaphragmatic hernia. She had major complications, and spent the better part of her visit in the ICU. She had to be on life support twice. She does have evidence of a tracheostomy. Per family report, she had been bed-bound since September, was sent home with home health and was still bed-bound. She did have a feeding tube in place into her abdomen, but it was not being used for tube feeds. She did have an open abdominal wound that leaked feculent material. Upon admission, she was quite altered and did not really respond appropriately. She would open her eyes briefly. She was admitted and placed in for septic shock, treated per protocol with broad-spectrum antibiotics. We brought pulmonology on board for hypoxemic respiratory failure. Nephrology on board for acute kidney injury as well as General Surgery and Infectious Disease. Antibiotic treatments were made accordingly. The patient was not a candidate for surgery here. Dr. Ashley's initial plan was to stabilize her, and transfer her to [facility]. Unfortunately, throughout her hospital course, she continued to decline. The family made her DNR level 1 after speaking with palliative care. They wanted to stop all treatments. She was placed on comfort measures only at 17:00, and around 18:10 Ms. Gee succumbed to her illness. Dictated by NANDO Flores for Augusto Clay MD cc: MD Shyam Carrillo MD Reginald D. Gladish, MD Jason R. Seale, MD Dr. Najjar Akram Haggag, MD
[2018-03-24] MEDS ORDERED: VANCOMYCIN 1,350 MG in NS 250 ML IV SCH (16:00)
== END 2018-03-23 18:14 | disposition expired | DRG 393 ==
LOC: SUPCPDRO → ED 11:16 → ICU 16:50
PROVIDERS: ATTEND Internal Medicine
CPT/HCPCS: 51702; 71010; 71045; 71250; 73500; 73501; 74176; 80048; 80053; 80069; 81001; 82550; 82607; 82746; 82805; 82948; 83605; 83615; 83880; 83930; 83935; 84300; 84443; 84484; 85025; 85379; 85384; 85610; 85730; 87040; 87070; 87077; 87088; 87186; 93005; 93010; 94640; 96365; 96366; 96368; 99285; 99291; A9270; J0330; J0610; J0712; J1170; J1720; J2185; J2370; J2543; J3370; J7030; J7040; J7050; J7070; J7120; P9047; XXXXX